=== PATIENT | male | born 1995 | race Caucasian/White ===

== ENCOUNTER 2018-07-05 13:05 | Emergency (ER) | payer SELFPAY ==
[~2018-07-05] VITALS: Ht 177.8 cm; Wt 62.1 kg
[2018-07-05 13:16] VITALS: BP 114/66
--- NOTE | 2018-07-05 13:19 | NUR ---
PT AMBULATED TO FELIX, JENI.
--- NOTE | 2018-07-05 14:12 | NUR ---
PT AMBULATED TO ER BED 06
[2018-07-05 14:14] VITALS: BP 114/66
--- NOTE | 2018-07-05 14:16 | NUR ---
BIB MOTHER. C/O NAUSEA X 1 YEAR STATES HE IS NOT ABLE TO EAT. STATES HE HAS NOT THROWN UP SINCE LAST WEEK. DENIES ABD PAIN JUST STATES HE FEELS NAUSEA ALL DAY LONG. WAS SEEN AT PCP OFFICE LAST WEEK, GIVEN PANTOPRAZOLE WITH NO RELIEF. DENIES OTHER SYMPTOMS AT THIS TIME.
[2018-07-05 15:25] LABS: BASOPHILS % (AUTO) 0.2 % (0.0-2.0); EOSINOPHILS % (AUTO) 0.5 % (0.0-4.0); HEMATOCRIT 50.1 % (36-52); HEMOGLOBIN 16.9 g/dL (12.0-18.0); LYMPHOCYTES % (AUTO) 13.5 % (20.5-51.1); MEAN CORPUSCULAR HEMOGLOBIN 28 pg (27-31); MEAN CORPUSCULAR HGB CONC 34 g/dL (33-37); MEAN CORPUSCULAR VOLUME 84.2 fL (80-94); MONOCYTES # (AUTO) 0.3 K/uL (0.8-1.0); MONOCYTES % (AUTO) 4.5 % (1.7-9.3); NEUTROPHILS # (AUTO) 5.7 K/uL (1.8-7.7); NEUTROPHILS % (AUTO) 81.3 % (42.2-75.2); PLATELET COUNT (AUTO) 170 K/uL (140-450); RED BLOOD CELL COUNT(AUTO) 5.95 MIL/uL (4.20-6.10); RED CELL DISTRIBUTION WIDTH 13.3 % (11.6-13.7); WHITE BLOOD COUNT (AUTO) 7.1 K/uL (4.5-11.0)
[2018-07-05 15:43] LABS: CARBON DIOXIDE 27.2 mmol/L (21-32); CREATININE 1.1 mg/dL (0.7-1.3); POTASSIUM 4.2 mmol/L (3.5-5.1)
[2018-07-05 15:49] LABS: ALBUMIN 4.9 g/dL (3.4-5.0); TOTAL BILIRUBIN 1.2 mg/dL (0.0-1.0)
== END 2018-07-05 17:58 | disposition home or self-care (01) ==
LOC: MED 13:05
DX: K29.70 Gastritis, unspecified, without bleeding (principal)
CPT/HCPCS: 36415; 76705; 80053; 83690; 85025; 99284; Q0092